=== PATIENT | male | born 1960 | race American Indian/Alaskan Native ===

== ENCOUNTER 2021-06-20 22:18 | Emergency (ER) | payer SELFPAY ==
[2021-06-20 22:35] VITALS: BP 118/75
--- NOTE | 2021-06-20 23:22 | Emergency Department Report ---
ED Syncope HPI - General Chief Complaint: Psych Stated Complaint: MENTAL EVALUATION/PASSED OUT Time Seen by Provider: 06/20/21 22:57 Source: patient, family - History of Present Illness Initial Comments: 60-year-old male, history of diabetes, presents to the ED [place] station. He reports he passed out because he is a bit dehydrated. Patient states he has not been eating much recently because he has acid reflux and eating foods upsets his stomach. Patient states he has lost a lot of weight recently. He reports he has an upcoming appointment with his physician for work-up. Patient denies any headache, chest pain, shortness of breath. Patient was evaluated by EMS but seems to have refused transport. Patient's family actually brought patient to the ED for evaluation. Family is concerned about patient's behavior. I spoke with patient's son and . Patient is not currently living with his , he is currently living with his girlfriend. states that over the last couple of weeks he has been acting "strange." She states he is normally very mild mannered, however over the last 2 days he has been talking very aggressive and he seems to be agitated. She states patient has not threatened her at all. She denies patient expressing any SI or HI to her. She denies any known drug use other than marijuana. She reports that he drinks occasionally. However, she is concerned that he may be using drugs. Son states that his father has been "acting manic." States he has been buying lots of things recently and getting rid of stuff. Patient and are also getting ready to sell the house that they owned together. Patient has no previous psychiatric history. Patient himself denies any SI, HI, hallucinations, drug use. Patient is angry and states his family is trying to control him. Timing/Prior Episodes: single episode today Precipitating Factors: Positive: lightheadedness Context: standing Current Symptoms: back to normal. denies: chest pain, lightheadedness ED Review of Systems ROS: Stated complaint: MENTAL EVALUATION/PASSED OUT Other details as noted in HPI Comment: All other systems reviewed and negative Constitutional: other (Reports weight loss). denies: chills, fever Respiratory: denies: shortness of breath Cardiovascular: denies: chest pain Gastrointestinal: denies: vomiting, diarrhea Neurological: denies: headache ED Past Medical Hx - Past Medical History Previous Medical History?: Yes Hx Diabetes: Yes - Surgical History Past Surgical History?: No ED Physical Exam - General Limitations: No Limitations General appearance: alert, in no apparent distress, other (Appears frail) - Head Head exam: Present: atraumatic, normocephalic - Eye Eye exam: Present: normal appearance, EOMI - ENT ENT exam: Present: mucous membranes moist - Neck Neck exam: Present: normal inspection - Respiratory Respiratory exam: Present: normal lung sounds bilaterally. Absent: respiratory distress - Cardiovascular Cardiovascular Exam: Present: regular rate, normal rhythm - GI/Abdominal GI/Abdominal exam: Present: soft. Absent: distended, tenderness - Extremities Exam Extremities exam: Present: normal inspection - Neurological Exam Neurological exam: Present: alert, oriented X3, CN II-XII intact, normal gait. Absent: motor sensory deficit - Psychiatric Psychiatric exam: Present: normal affect, normal mood. Absent: depressed, agitated, manic, homicidal ideation, suicidal ideation - Skin Skin exam: Present: warm, dry, intact, normal color ED Course Vital Signs 06/20/21 22:32 Temperature 98.5 F Pulse Rate 76 Respiratory 18 Rate Blood Pressure 118/75 O2 Sat by Pulse 93 Oximetry ED Medical Decision Making - Medical Decision Making 60-year-old male presents to ED following syncopal episode. However, family reported that patient has had strange behavior over the last couple weeks, worse over the last 2 days. Family denies that patient has been violent or threat ening. Patient denies any SI or HI or hallucinations. Despite our best efforts, Mr. Martinez has decided to leave AGAINST MEDICAL ADVICE he has normal mental status and full decisional capacity. The patient understands his condition of syncopal episode and the risks of leaving AMA, including but not limited to permanent disability and . Patient has had opportunity to ask questions about his medical condition. The patient has been informed that he may return for care at any time. Referred to his regular physician for follow-up GUERITA. - Differential Diagnosis Dehydration, anemia, malignancy, thyroid disorder Critical care attestation.: If time is entered above; I have spent that time in minutes in the direct care of this critically ill patient, excluding procedure time. ED Disposition Clinical Impression: Syncope Disposition: 07 LEFT AGAINST MEDICAL ADVICE Is pt being admited?: No Condition: Stable Instructions: Syncope (ED) Forms: AMA Form Time of Disposition: 23:27
[2021-06-20 23:38] LABS: Bilirubin,Urine NEG (Negative); Blood,Urine NEG (Negative); Color,Urine Yellow (Yellow); Hyaline Casts,Urine 3 /LPF; Mucus,Urine FEW /HPF
[2021-06-20 23:42] LABS: Amphetamine Screen,Urine PRESUMPTIVE NEGATIVE; Benzodiazepines Screen,Urine PRESUMPTIVE NEGATIVE; Cannabinoid Screen,Urine PRESUMPTIVE POSITIVE; Cocaine Screen,Urine PRESUMPTIVE NEGATIVE; Methadone Screen,Urine PRESUMPTIVE NEGATIVE; Opiate Screen,Urine PRESUMPTIVE NEGATIVE
== END 2021-06-21 00:28 | disposition left against medical advice (07) ==
LOC: ED 22:18
DX: R55 Syncope and collapse (principal); E11.9 Type 2 diabetes mellitus without complications; Z98.890 Other specified postprocedural states; Z79.899 Other long term (current) drug therapy
CPT/HCPCS: 80307; 81001; 82962; 99283